=== PATIENT | female | born 1965 | race Caucasian/White ===

== ENCOUNTER 2021-03-02 18:02 | Emergency (ER) | payer OTHER, SELFPAY ==
--- NOTE | ~2021-03-02 | XR_ITS ---
EXAMINATION: XR ankle LT min 3V DATE: 03/02/2021 18:22 INDICATION: Left ankle injury and pain. TECHNIQUE: 4 views of left ankle were obtained. COMPARISON: None. FINDINGS: Bone alignment is normal. No fracture. Joint spaces are well maintained. There is lateral a nkle soft tissue swelling. IMPRESSION: 1. No fracture. Reviewed, dictated and finalized at location A. IMPRESSION: 1. No fracture.
--- NOTE | 2021-03-02 18:07 | ED.LOWEXIN ---
HPI - Extremity Injury (Lower) General Chief Complaint: Extremity Injury, Lower Stated Complaint: left ankle pain Time Seen by Provider: 03/02/21 18:08 Source: patient and RN notes reviewed History of Present Illness HPI Narrative: Patient is a 55-year-old female who presents the urgent care with complaints of left ankle injury with swelling and pain. Patient states that on Friday night she rolled it while walking and did not think anything of it . Patient states that she started to have some mild swelling on Friday and now has had increased pain over the last 2 days. Patient states that she has been using Voltaren cream to the area and has continued to do her normal daily activities. Denies of any other injuries. No other acute complaints. No acute distress noted. Patient aware of the plan of care. Some parts of this dictation were generated by voice recognition software and may contain typographical and/or grammatical inaccuracies. Related Data Home Medications Medication Instructions Recorded Confirmed calcium carbonate 600 mg calcium 600 mg PO DAILY 05/03/19 01/11/20 (1,500 mg) tablet cholecalciferol (vitamin D3) 50 2,000 unit PO DAILY 05/03/19 01/11/20 mcg (2,000 unit) capsule fexofenadine 180 mg tablet 180 mg PO DAILY 05/03/19 01/11/20 mometasone 50 mcg/actuation nasal 2 spray NASAL ONCE gm 05/03/19 01/11/20 spray Allergies Allergy/AdvReac Type Severity Reaction Status Date / Time venom-wasp AdvReac Intermediate Swelling Verified 01/03/20 10:05 Review of Systems Review of Systems: CONSTITUTIONAL: Denies fever, chills, or sweats. EYES: Denies visual changes, redness, or discharge. ENT: Denies rhinorrhea, congestion, sore throat, or otalgia. CARDIOVASCULAR: Denies chest pain, palpitations, or edema. RESPIRATORY: Denies cough or dyspnea. GASTROINTESTINAL: Denies abdominal pain, nausea, vomiting, or diarrhea. GENITOURINARY: Denies dysuria or hematuria. SKIN: Denies rash or itching. MUSCULOSKELETAL: Reports of left ankle pain and swelling NEUROLOGIC: Denies headache, numbness, or weakness. All other systems reviewed are negative, except as documented in HPI. FORMERLY [facility], [facility] Family History Family History Father Diabetes mellitus Hypertension Family history of malignant neoplasm Family history of chronic obstructive pulmonary disease Mother Hypertension Family history of chronic obstructive pulmonary disease Family history of atrial fibrillation Grandparent Hypertension Cerebrovascular accident Family history of Parkinson's disease Other Asthma Social History Social History Smoking status: Never smoker Alcohol intake: current Comments At the time of my signature, I reviewed and agree with the nursing past medical, surgical, social, and family history. There is no relevant family history pertinent to the patient complaint. Exam Narrative: GENERAL: This is a well-nourished, well-developed patient, in no apparent distress. HEAD: normocephalic, atraumatic. EYES: PERRL. Sclera clear/white. Vision is grossly intact. EARS: External ears normal NOSE: External nose normal with no obvious nasal discharge, nares without redness, no rhinorrhea. THROAT: Mucous membranes moist NECK: Neck supple CARDIOVASCULAR: Regular rate and rhythm without murmurs, gallops, or rubs. RESPIRATORY: Clear to auscultation. Breath sounds equal bilaterally. No wheezes, rales, or rhonchi. SKIN: warm, intact with no suspicious lesions or rash, good texture and turgor. NEURO: awake, alert, and oriented to person, place and time. There were no obvious focal neurologic abnormalities. EXTREMITIES: Mild to moderate edema noted to the lateral left malleolus with mild tenderness. Range of motion to left lower extremity within normal limits. Positive strong left pedal pulse with capillary refill less than 2 seconds. P
[2021-03-02 18:10] VITALS: BP 146/77; PULSE 82; RESP 18; TEMP 37.1; O2SAT 100
--- NOTE | 2021-03-02 18:26 | PC.NURSE ---
PT DECLINED ICE FOR COMFORT
== END 2021-03-02 18:40 | disposition home or self-care (01) ==
PROVIDERS: Emergency Provider Nurse Practitioner Family; PCP Radiology Diagnostic Radiology
DX: S93.402A Sprain of unspecified ligament of left ankle, initial encounter (principal); X50.1XXA Overexertion from prolonged static or awkward postures, initial encounter
CPT/HCPCS: 73610; 99213; G0463

== ENCOUNTER 2021-04-18 07:21 | Outpatient (CLI) | payer OTHER, SELFPAY ==
[2021-04-18 20:10] LABS: Basophils Percent Auto 0.6 % (0.2-1.2); Eosinophils Absolute Auto 0.2 K/mm3 (0-0.3); Eosinophils Percent Auto 3.7 % (0-4.4); Hematocrit 42.7 % (37.0-47.0); Hemoglobin 13.2 g/dL (12.0-15.0); Immature Granulocyte Absolute 0.01 K/mm3 (0.00-0.031); Immature Granulocyte Percent A 0.2 % (0-0.5); Lymphocytes Absolute Auto 2.08 K/mm3 (0.9-3.2); Lymphocytes Percent Auto 38.4 % (18.3-44.2); Mean Corpuscular HGB Conc 30.9 g/dl (32-36); Mean Corpuscular Hemoglobin 28.7 pg (26-34); Mean Corpuscular Volume 92.8 fl (80-100); Mean Platelet Volume 11.8 fl (7.4-10.4); Monocytes Absolute Auto 0.6 K/mm3 (0.1-0.6); Monocytes Percent Auto 10.9 % (2.6-8.5); Neutrophils Absolute Auto 2.5 K/mm3 (1.3-6.7); Neutrophils Percent Auto 46.2 % (45.5-73.1); Platelet Count Result 320 k/mm3 (150-375); Red Cell Distribution Width 13.4 % (11.5-14.5); White Blood Count 5.4 K/mm3 (4.5-10.0)
[2021-04-18 20:32] LABS: Alanine Aminotransferase 25 U/L (4-35); Albumin Level 4.3 g/dL (3.5-5.1); Alkaline Phosphatase 67 U/L (38-126); Anion Gap 7 mmol/L (8-16); Aspartate Amino Transferase 34 U/L (14-36); Bilirubin,Total 0.5 mg/dL (0.2-1.3); Blood Urea Nitrogen 15 mg/dL (7-17); Calcium 9.8 mg/dL (8.4-10.2); Carbon Dioxide 29 mmol/L (22-30); Chloride 104 mmol/L (98-107); Cholesterol 210 mg/dL (0-200); Estimated Glomerular Filt Rate > 60; Glucose 98 mg/dL (65-110); HDL Direct 61 mg/dL; Potassium 4.8 mmol/L (3.4-5.0); Sodium 140 mmol/L (137-145); Triglycerides 66 mg/dL (<150)
[2021-04-18 20:43] LABS: LDL Cholesterol Direct 128 mg/dL
[2021-04-18 20:58] LABS: Hemoglobin A1C 5.4 % (<5.7)
[2021-04-18 21:52] LABS: Vitamin D 25 Hydroxy 43.7 ng/mL
== END 2021-04-18 07:22 | disposition home or self-care (01) ==
PROVIDERS: PCP Family Medicine; Visit Provider Family Medicine
DX: Z00.00 Encounter for general adult medical examination without abnormal findings (principal); R79.89 Other specified abnormal findings of blood chemistry
CPT/HCPCS: 36415; 80053; 80061; 82306; 83036; 84443; 85025

== ENCOUNTER 2021-10-15 15:49 | Outpatient (CLI) | payer OTHER, SELFPAY | END 2021-10-15 15:50 | disposition home or self-care (01) | LOC: ANHBWCLAB 15:51 | PROVIDERS: PCP Family Medicine; Visit Provider Family Medicine | DX: E07.9 Disorder of thyroid, unspecified (principal) | CPT/HCPCS: 36415; 84443 ==

== ENCOUNTER 2022-05-10 07:56 | Outpatient (CLI) | payer OTHER, SELFPAY ==
[2022-05-10 18:26] LABS: Alanine Aminotransferase 24 U/L (6-35); Albumin Level 4.4 g/dL (3.5-5.1); Alkaline Phosphatase 55 U/L (38-126); Anion Gap 12 mmol/L (8-16); Aspartate Amino Transferase 51 U/L (14-36); Bilirubin,Total 0.5 mg/dL (0.2-1.3); Blood Urea Nitrogen 10 mg/dL (7-17); Calcium 9.4 mg/dL (8.4-10.2); Carbon Dioxide 27 mmol/L (22-30); Chloride 102 mmol/L (98-107); Cholesterol 210 mg/dL (0-200); Estimated Glomerular Filt Rate > 60; Glucose 86 mg/dL (65-110); HDL Direct 54 mg/dL; Potassium 4.1 mmol/L (3.4-5.0); Sodium 141 mmol/L (137-145); Triglycerides 67 mg/dL (<150)
[2022-05-10 18:36] LABS: Free T4 Free Thyroxine 0.86 ng/mL (0.78-2.19); Vitamin D 25 Hydroxy 52.2 ng/mL
[2022-05-10 18:37] LABS: LDL Cholesterol Direct 102 mg/dL
[2022-05-10 18:40] LABS: Basophils Absolute Auto 0.1 K/mm3 (0.0-0.1); Basophils Percent Auto 0.9 % (0.2-1.2); Eosinophils Absolute Auto 0.2 K/mm3 (0-0.3); Eosinophils Percent Auto 4.3 % (0-4.4); Hematocrit 40.5 % (37.0-47.0); Hemoglobin 13.1 g/dL (12.0-15.0); Immature Granulocyte Absolute 0.01 K/mm3 (0.00-0.031); Immature Granulocyte Percent A 0.2 % (0-0.5); Lymphocytes Absolute Auto 2.34 K/mm3 (0.9-3.2); Lymphocytes Percent Auto 41.6 % (18.3-44.2); Mean Corpuscular HGB Conc 32.3 g/dl (32-36); Mean Corpuscular Hemoglobin 28.6 pg (26-34); Mean Corpuscular Volume 88.4 fl (80-100); Mean Platelet Volume 12.3 fl (7.4-10.4); Monocytes Absolute Auto 0.7 K/mm3 (0.1-0.6); Monocytes Percent Auto 11.9 % (2.6-8.5); Neutrophils Absolute Auto 2.3 K/mm3 (1.3-6.7); Neutrophils Percent Auto 41.1 % (45.5-73.1); Platelet Count Result 240 k/mm3 (150-375); Red Blood Count 4.58 M/mm3 (4.2-5.4); Red Cell Distribution Width 13.4 % (11.5-14.5); White Blood Count 5.6 K/mm3 (4.5-10.0)
[2022-05-15 20:54] LABS: Triiodothyronine T3 Free 4.1 pg/mL (2.3-4.2)
== END 2022-05-10 07:57 | disposition home or self-care (01) ==
LOC: ANHBWCLAB 07:58
PROVIDERS: PCP Family Medicine; Visit Provider Family Medicine
DX: E07.9 Disorder of thyroid, unspecified (principal); F41.9 Anxiety disorder, unspecified; J30.2 Other seasonal allergic rhinitis; R79.89 Other specified abnormal findings of blood chemistry; T63.441A Toxic effect of venom of bees, accidental (unintentional), initial encounter; T63.451A Toxic effect of venom of hornets, accidental (unintentional), initial encounter; T63.461A Toxic effect of venom of wasps, accidental (unintentional), initial encounter
CPT/HCPCS: 36415; 80053; 80061; 82306; 84439; 84443; 84481; 85025

== ENCOUNTER 2023-05-12 10:22 | Outpatient (CLI) | payer OTHER, SELFPAY ==
[2023-05-12 19:29] LABS: Alanine Aminotransferase 20 U/L (6-35); Albumin Level 4.6 g/dL (3.5-5.1); Alkaline Phosphatase 55 U/L (38-126); Anion Gap 9 mmol/L (8-16); Aspartate Amino Transferase 39 U/L (14-36); Bilirubin,Total 0.6 mg/dL (0.2-1.3); Blood Urea Nitrogen 11 mg/dL (7-17); Calcium 9.9 mg/dL (8.4-10.2); Carbon Dioxide 28 mmol/L (22-30); Chloride 104 mmol/L (98-107); Cholesterol 234 mg/dL (0-200); Estimated Glomerular Filt Rate > 60; Free T4 Free Thyroxine 0.89 ng/mL (0.78-2.19); Glucose 93 mg/dL (65-110); HDL Direct 59 mg/dL; Potassium 4.7 mmol/L (3.4-5.0); Sodium 141 mmol/L (137-145); Triglycerides 94 mg/dL (<150); Vitamin D 25 Hydroxy 56.9 ng/mL
[2023-05-12 19:40] LABS: LDL Cholesterol Direct 117 mg/dL
[2023-05-12 19:41] LABS: Basophils Percent Auto 0.5 % (0.2-1.2); Eosinophils Absolute Auto 0.2 K/mm3 (0-0.3); Eosinophils Percent Auto 3.1 % (0-4.4); Hemoglobin 13.7 g/dL (12.0-15.0); Immature Granulocyte Absolute 0.01 K/mm3 (0.00-0.031); Immature Granulocyte Percent A 0.2 % (0-0.5); Lymphocytes Absolute Auto 1.97 K/mm3 (0.9-3.2); Lymphocytes Percent Auto 35.9 % (18.3-44.2); Mean Corpuscular HGB Conc 31.1 g/dl (32-36); Mean Corpuscular Hemoglobin 28.8 pg (26-34); Mean Corpuscular Volume 92.4 fl (80-100); Mean Platelet Volume 12.4 fl (7.4-10.4); Monocytes Absolute Auto 0.5 K/mm3 (0.1-0.6); Monocytes Percent Auto 9.1 % (2.6-8.5); Neutrophils Absolute Auto 2.8 K/mm3 (1.3-6.7); Neutrophils Percent Auto 51.2 % (45.5-73.1); Platelet Count Result 241 k/mm3 (150-375); Red Blood Count 4.76 M/mm3 (4.2-5.4); White Blood Count 5.5 K/mm3 (4.5-10.0)
[2023-05-14 13:28] LABS: Triiodothyronine T3 Free 4.2 pg/mL (2.3-4.2)
== END 2023-05-12 10:23 | disposition home or self-care (01) ==
PROVIDERS: PCP Family Medicine; Visit Provider Family Medicine
DX: E07.9 Disorder of thyroid, unspecified (principal); R79.89 Other specified abnormal findings of blood chemistry; J30.2 Other seasonal allergic rhinitis; Z00.00 Encounter for general adult medical examination without abnormal findings
CPT/HCPCS: 36415; 80053; 80061; 82306; 84439; 84443; 84481; 85025

== ENCOUNTER 2023-11-18 10:56 | Outpatient (CLI) | payer OTHER, SELFPAY ==
[2023-11-18 18:42] LABS: Mean Corpuscular HGB Conc 31.1 g/dl (32-36); Mean Corpuscular Hemoglobin 28.5 pg (26-34); Mean Corpuscular Volume 91.6 fl (80-100); Mean Platelet Volume 12.3 fl (7.4-10.4); Platelet Count Result 254 k/mm3 (150-375); Red Blood Count 4.91 M/mm3 (4.2-5.4); Red Cell Distribution Width 13.9 % (11.5-14.5); White Blood Count 5.9 K/mm3 (4.5-10.0)
[2023-11-18 19:03] LABS: Alanine Aminotransferase 24 U/L (6-35); Alkaline Phosphatase 63 U/L (38-126); Aspartate Amino Transferase 77 U/L (14-36); Bilirubin,Total 0.6 mg/dL (0.2-1.3)
[2023-11-18 20:18] LABS: Free T4 Free Thyroxine 0.76 ng/mL (0.78-2.19); Vitamin D 25 Hydroxy 56.8 ng/mL
[2023-11-18 20:29] LABS: Hepatitis B Surface Antigen Negative (Negative)
[2023-11-18 20:46] LABS: Hepatitis C Virus Antibody Negative (Negative)
[2023-11-18 23:42] LABS: Hepatitis B Core IgM Result Negative (Negative)
[2023-11-18 23:43] LABS: HAV RESULT Negative (Negative)
== END 2023-11-18 10:57 | disposition home or self-care (01) ==
LOC: ANHBWCLAB 10:57
PROVIDERS: PCP Family Medicine; Visit Provider Family Medicine
DX: Z00.00 Encounter for general adult medical examination without abnormal findings (principal); R74.01 Elevation of levels of liver transaminase levels; E07.9 Disorder of thyroid, unspecified; R79.89 Other specified abnormal findings of blood chemistry
CPT/HCPCS: 36415; 80074; 80076; 82306; 84439; 84443; 85027

== ENCOUNTER 2023-11-26 08:30 | Outpatient (CLI) | payer OTHER, SELFPAY ==
--- NOTE | ~2023-11-26 | US_ITS ---
Limited Abdominal Sonogram: Real-time sonographic imaging of the right upper quadrant was performed. Clinical History: Elevated liver transaminase levels Findings: The liver appears normal with no evidence of mass lesion or bile duct dilatation. Main por isa vein demonstrates normal direction of flow. The gallbladder is well distended, and appears normal with no evidence of gallstone or wall thickening. The common bile duct measures 3 mm. The visualize d pancreas, aorta, and IVC are unremarkable. Impression: No significant abnormality seen. Reviewed, dictated and finalized at location M. Impression: No significant abnormality seen.
== END 2023-11-26 08:31 ==
LOC: GOSHIMG 08:30
PROVIDERS: PCP Family Medicine; Visit Provider Family Medicine
DX: R74.01 Elevation of levels of liver transaminase levels (principal)
CPT/HCPCS: 76705

== ENCOUNTER 2024-10-18 13:36 | Emergency (ER) | payer OTHER, SELFPAY ==
[2024-10-18] VITALS (20 sets, daily range): BP systolic 100–141; BP diastolic 43–84; PULSE 55–95; RESP 5–22; TEMP 36.8–37.1; O2SAT 94–100
--- NOTE | ~2024-10-18 | XR_ITS ---
EXAM: XR wrist LT 2V DATE: 10/18/2024 16:11 HISTORY: reduction repeat . COMPARISON: None available. FINDINGS/IMPRESSION: Detail obscured by overlying cast material. Considerably improved alignment status post reduction. Persistent 5 mm lateral and 4 mm posterior displacement of the comminuted intra-articular distal radi al fracture, with some residual impaction. Persistent 2 mm lateral displacement of the comminuted distal ulnar/ulnar styloid fracture. Reviewed, dictated and finalized at location K.
--- NOTE | ~2024-10-18 | XR_ITS ---
Left wrist Technique: PA and lateral views were obtained. Clinical History: Trauma, deformity Findings: There is a comminuted transverse intra-articular fracture the distal radius with complete o verriding and dorsal displacement by one full shaft width. There is also a transverse fracture the di stal ulna, again with dorsal displacement by one full shaft width and probable overriding. Soft tissu e swelling noted about the wrist. Impression: Comminuted transverse intra-articular fracture the distal radius with significant dorsal displacement and overriding, as detailed above. Transverse fracture the distal lumen, also with significant dorsal displacement and overriding. Orthopedic consultation should be strongly considered given significant displacement present. Reviewed, dictated and finalized at location M. Impression: Comminuted transverse intra-articular fracture the distal radius with significa nt dorsal displacement and overriding, as detailed above. Transverse fracture the distal lumen, also with significant dorsal displacement and overriding. Orthopedic consultation should be strongly considered given significant displac ement present.
--- NOTE | 2024-10-18 14:40 | PC.NURSE ---
last oral intake was right before coming to ED
[2024-10-18] MEDS: HYDROmorphone HCL INJ (*CRX) 2 MG/ML VIAL 0.5 MG IV PUSH (14:52)
--- NOTE | 2024-10-18 14:55 | ED.UPPEXIN ---
HPI - Extremity Injury (Upper) General Chief Complaint: Extremity Injury, Upper Stated Complaint: L wrist deformity Time Seen by Provider: 10/18/24 14:27 History of Present Illness HPI narrative: 59-year-old female presenting to the emergency department for left wrist injury. Patient states that she was walking her dogs when they ran out at the neighbor's dog and pulled her forward. She ended up falling onto her left outstretched hand and tumbled briefly. Able to get up and ambulate. Not hit her head or lose consciousness. Had an obvious deformity when EMS arrived. Same splint applied by EMS with a sling. Patient received 100 mcg of fentanyl EN route with improvement in pain. She has subjective paresthesias in her left fingers and limited mobility secondary to the deformity. No other injuries. No elbow pain, humerus pain, headache or neck pain. Denies any allergies. Had oral intake 2 hours prior to arrival. No history of complications from surgeries or intolerance to anesthetic drugs. No history of fractures or dislocations in the past. Related Data Home Medications ?Medication ?Instructions ?Recorded ?Confirmed ?Last Taken ?Type calcium carbonate (Calcium 600) 600 mg PO DAILY 05/03/19 01/07/24 Unknown History cholecalciferol (vitamin D3) 50 2,000 unit PO DAILY 05/03/19 01/07/24 Unknown History mcg (2,000 unit) capsule fexofenadine 180 mg tablet 180 mg PO DAILY 05/03/19 01/07/24 Unknown History (Padmini Allergy) mometasone 50 mcg/actuation nasal 2 spray intranasal ONCE 05/03/19 01/07/24 Unknown History spray (Nasonex) Allergies Allergy/AdvReac Type Severity Reaction Status Date / Time venom-wasp AdvReac Intermediate Swelling Verified 05/17/24 09:19 Review of Systems Review of Systems: As reviewed above in HPI [facility] Past Medical History Medical History delivery delivered Endometriosis History of arthritis Allergies Thyroid disorder Surgical History Surgical History S/P lateral meniscal repair S/P laparoscopic surgery Family History Family History Father Diabetes mellitus Hypertension Family history of malignant neoplasm Family history of chronic obstructive pulmonary disease Mother Hypertension Family history of chronic obstructive pulmonary disease Family history of atrial fibrillation Grandparent Hypertension Cerebrovascular accident Family history of Parkinson's disease Other Asthma Social History Social History Smoking status: Never smoker Alcohol intake: current Lack of Transportation: No Lack of Food: Never True Current Housing: I Have Housing Concerned About Future Housing: No Difficulty Paying Gas/Electric Bills: No Difficulty Paying for Meds: No Currently Unemployed: No Education: Associate Degree Difficulty w/ Childcare or Family Care: No Exam Narrative: GENERAL: Uncomfortable appearing but not any acute distress, awake and answering questions HEAD: [Normocephalic, atraumatic.] EYES: [PERRLA and EOMI.] ENT: Nares clear, no rhinorrhea or epistaxis. Mucous membranes moist. NECK: Supple. CHEST: [Clear to auscultation. No respiratory distress.] HEART: [Regular rate and rhythm]. No murmur heard. [Normal peripheral pulses.] ABDOMEN: [Soft, nondistended], [nontender], [No rigidity or guarding] EXTREMITIES: Left upper extremity with a deformed posterior angulated left wrist without any lacerations or open wounds. Able to wiggle her fingers but not able to oppose the digits or make a thumbs-up sign. No tenderness of the elbow or humerus. SKIN: Warm, dry, no rash. NEURO: Subjective paresthesias in the left fingertips, able to wiggle her fingers. Alert oriented x4. No other sensory or motor deficits appreciated. PSYCH: [Normal mood and affect.] Course Vital Signs Vital signs: Vital Signs Temperature 37.1 C 10/18/24 13:44 Pulse Rate 55 L 10/18/24 13:44 Respiratory Rate 18 10/18/24 13:44 Blood Pressure 117/69 10/18/24 13:44 Pulse Oximetry 98 10/18/24 13:44 Temperature 36.9 C 10/18/24 16:40 Pulse Rate 72 10/18/24 16:25 Respiratory Rate 12 10/18/24 16:40 Blood Pressure 122/67 10/18/24 16:40 Pulse Oximetry 97 10/18/24 16:40 Oxygen Delivery Room Air 10/18/24 16:40 Procedures Orthopedic Fracture Reduction Fracture #1: Fracture Reduction date: 10/18/24 Fracture Reduction time: 15:55 Time Out Performed: Yes Side: left Fracture Reduction Location: radius and ulna Analgesia: procedural sedation Pre-Procedure Neuro Vascular Exam: normal Technique: direct manipulation and traction/counter-traction Post Reduction X-rays Demonstrate: anatomical reduction Post-reduction neuro exam: intact Post-reduction vascular exam: intact Splint Applied: Yes Patient Tolerated Procedure: well and no complications Orthopedic Splinting/Casting Injury #1: Splinting/Casting Date: 10/18/24 Splinting/Casting Time: 16:10 Side: left Upper Extremity Injury Location: wrist Upper Extremity Immobilizer: sugar tong splint Splint: customized in ED Pre-Procedure Neuro Vascular Exam: normal Post-Procedure Neuro Vascular Exam: normal Procedural Sedation Procedural Sedation #1: Procedural Sedation Date: 10/18/24 Procedural Sedation Time: 15:55 Presedation Evaluation: Mallampati 2, last oral intake 2 hours prior. No history of reactions to anesthesia. Neurovascular intact with 2+ radial pulses, able to wiggle her fingers. No paresthesias. Procedure: Moderate sedation and fracture/dislocation reduction of the left distal radius and ulna Provider Performed: sedation and procedure Time Out: 1555. Name age date of confirmed. Procedure confirmed. Patient verbally consented and signed paperwork Informed Consent Obtained: yes Equipment in Room: bag and mask, capnography, supervisor electrolytic tinning, crash cart, oxygen, pulse oximeter and suction Plan for Sedation: moderate sedation ASA Class: I Mallampati Classification: class II NPO Status: last solid food (hours ago) and last liquid food (hours ago) Explanation to Patient/Family: Risk/Benefits/Alternatives and Pt/Family agreed with plan Pt. Educated on Procedural Sedation: Yes Re-evaluated immediately prior: Yes Preparation: supervisor electrolytic tinning applied, pulse oximeter, capnometry used, supplemental O2 applied, suction/airway equipment at bedside and IV secured Ketamine: IV Ketamine dose (mg): 150 Patient Tolerated Procedure: well and no complications Complications: none Total Sedation Time (min): 17 MDM - Extremity Injury (Upper) MDM Narrative Medical decision making narrative: 59-year-old female presenting with a deformed left upper extremity after being pulled to the ground by her dogs. She has a posteriorly angulated and deformed left wrist but good 2+ radial pulse. Warm extremity. Subjective paresthesias and limited range of motion although secondary to the significant deformity unclear if also concomitant nerve injury. No other appreciable injuries according the patient. She did not hit her head or lose consciousness. Received fentanyl EN route with improvement her pain. Patient will require procedural sedation for reduction given the significant injury. X-rays were obtained which confirmed significant dislocation and underlying fractures. Laboratory studies were obtained. Patient consented verbally to procedural sedation. Last oral intake 2 hours ago. Mallampati 2. Will attempt reduction at bedside and consult Orthopedics. Fracture reduction was completed at bedside with moderate sedation in the 150 mg of ketamine. Patient tolerated the procedure well. Near anatomic alignment on postprocedural x-ray per my interpretation. Radiology shows some slight residual angulation. Discussed the case and images with our on car orthopedic surgeon Dr. Galvez who recommended talking to a tertiary care center for hand specialty consultation. Spoke to the [facility] transfer system as connected to Dr. Blackwell from plastic surgery. We went over the imaging studies and given that she is neurovascular intact with good approximation on reduction and appropriately splinted she can be set up for outpatient a war appointment on . Surgeon will contact the patient tomorrow to establish timeline and location. Family and patient were made aware of this plan and comfortable. She will be discharged home with as needed pain medications and given strict return precautions and instructions to follow-up with the orthopedic/plastic surgeon on for operative intervention. Patient discharged home at this time. Medical Records Attestation: I reviewed the patient's medical records. Lab Data Attestation: I reviewed the patient's lab results. 10/18/24 15:09 10/18/24 15:09 Labs: Lab Results 10/18/24 Range/Units 15:09 WBC 10.5 H (4.5-10.0) K/mm3 RBC 4.52 (4.2-5.4) M/mm3 Hgb 12.9 (12.0-15.0) g/dL Hct 39.7 (37.0-47.0) % MCV 87.8 (80-100) fl MCH 28.5 (26-34) pg MCHC 32.5 (32-36) g/dl RDW 13.3 (11.5-14.5) % Plt Count 201 (150-375) k/mm3 MPV 11.8 H (7.4-10.4) fl Immature Gran % (Auto) 0.4 (0-0.5) % Neut % (Auto) 77.6 H (45.5-73.1) % Lymph % (Auto) 11.4 L (18.3-44.2) % [place] % (Auto) 9.6 H (2.6-8.5) % Eos % (Auto) 0.7 (0-4.4) % Baso % (Auto) 0.3 (0.2-1.2) % Lymph # (Auto) 1.19 (0.9-3.2) K/mm3 [place] # (Auto) 1.0 H (0.1-0.6) K/mm3 Eos # (Auto) 0.1 (0-0.3) K/mm3 Baso # (Auto) 0.0 (0.0-0.1) K/mm3 Abs Immat Gran (auto) 0.04 H (0.00-0.031) K/mm3 Absolute Neuts (auto) 8.1 H (1.3-6.7) K/mm3 Absolute Nucleated RBC 0.000 (0.0-0.012) K/mm3 Nucleated RBC % 0.0 (0.0-0.2) % PT 12.9 (11.1-14.7) Seconds INR 0.9 APTT 24.1 (22.3-36.8) Seconds Sodium 139 (137-145) mmol/L Potassium 3.6 (3.4-5.0) mmol/L Chloride 104 (98-107) mmol/L Carbon Dioxide 24 (22-30) mmol/L Anion Gap 11 (4-12) mmol/L BUN 12 (7-17) mg/dL Creatinine 0.61 L (0.7-1.0) mg/dL Estim Creat Clear Calc 98 ml/min Estimated GFR > 60 (59 - ) Glucose 100 (65-110) mg/dL Calcium 9.2 (8.4-10.2) mg/dL Imaging Data Attestation: I personally reviewed and interpreted this imaging study as follows: My impression: Impressions Wrist X-Ray 10/18/24 14:30 Impression: Comminuted transverse intra-articular fracture the distal radius with significant dorsal displacement and overriding, as detailed above. Transverse fracture the distal lumen, also with significant dorsal displacement and overriding. Orthopedic consultation should be strongly considered given significant displacement present. Discharge Plan Discharge Clinical Impression: Intra-articular fracture of distal end of left radius with volar angulation, Closed fracture distal radius and ulna Patient Disposition: Home Condition: Stable Instructions: Antibiotic Form, Wrist Fracture in Adults (ED), ORIF of a Wrist Fracture (DC) Additional Instructions: You have significant fractures in your left wrist and needed reduction here in the emergency department. We have contacted the [facility] system and arranged for an outpatient OR appointment on with Dr. Blackwell the plastic/hand specialist. Their office will call you tomorrow to set up details and instructions. If you experience any worsening symptoms such as new numbness in the fingers, inability to move the fingers, discoloration or increasing pain return to the emergency department otherwise follow-up with the surgeon. Patient Language: Tongan Prescriptions: New methocarbamol 500 mg tablet 500 mg PO HS Qty: 7 0RF ibuprofen 800 mg tablet 800 mg PO TID PRN (Reason: pain) Qty: 30 0RF ondansetron 4 mg tablet,disintegrating 4 mg PO Q8H PRN (Reason: nausea and vomiting) Qty: 10 0RF oxycodone 5 mg tablet 5 mg PO Q8H PRN (Reason: pain) Qty: 10 0RF acetaminophen [Tylenol Extra Strength] 500 mg tablet 1,000 mg PO TID PRN (Reason: pain) Qty: 30 0RF No Action fexofenadine [Padmini Allergy] 180 mg tablet 180 mg PO DAILY mometasone [Nasonex] 50 mcg/actuation spray,non-aerosol 2 spray NASAL ONCE cholecalciferol (vitamin D3) 2,000 unit capsule 2,000 unit PO DAILY calcium carbonate [Calcium 600] 600 mg calcium (1,500 mg) tablet 600 mg PO DAILY estradiol 4 mcg insert, dose pack See Rx Instructions vaginal .COMPLEX Qty: 18 0RF Rx Instructions: insert one 4 mcg insert vaginally once daily for 2 weeks, then twice weekly estradiol 4 mcg insert 4 mcg vaginal 2XW Qty: 24 3RF prednisone 20 mg tablet 60 mg PO DAILY Qty: 15 0RF liothyronine [Cytomel] 5 mcg tablet 5 mcg PO BID Qty: 180 1RF Follow-up/Referrals: Elias Estrella MD [Primary Care Provider] - Time of Disposition: 17:56
[2024-10-18 15:24] LABS: Basophils Percent Auto 0.3 % (0.2-1.2); Eosinophils Absolute Auto 0.1 K/mm3 (0-0.3); Eosinophils Percent Auto 0.7 % (0-4.4); Hematocrit 39.7 % (37.0-47.0); Hemoglobin 12.9 g/dL (12.0-15.0); Immature Granulocyte Absolute 0.04 K/mm3 (0.00-0.031); Immature Granulocyte Percent A 0.4 % (0-0.5); Lymphocytes Absolute Auto 1.19 K/mm3 (0.9-3.2); Lymphocytes Percent Auto 11.4 % (18.3-44.2); Mean Corpuscular HGB Conc 32.5 g/dl (32-36); Mean Corpuscular Hemoglobin 28.5 pg (26-34); Mean Corpuscular Volume 87.8 fl (80-100); Mean Platelet Volume 11.8 fl (7.4-10.4); Monocytes Percent Auto 9.6 % (2.6-8.5); Neutrophils Absolute Auto 8.1 K/mm3 (1.3-6.7); Neutrophils Percent Auto 77.6 % (45.5-73.1); Platelet Count Result 201 k/mm3 (150-375); Red Blood Count 4.52 M/mm3 (4.2-5.4); Red Cell Distribution Width 13.3 % (11.5-14.5); White Blood Count 10.5 K/mm3 (4.5-10.0)
[2024-10-18 15:33] LABS: Anion Gap 11 mmol/L (4-12); Blood Urea Nitrogen 12 mg/dL (7-17); Calcium 9.2 mg/dL (8.4-10.2); Carbon Dioxide 24 mmol/L (22-30); Chloride 104 mmol/L (98-107); Estimated CRCL calculation 98 ml/min; Estimated Glomerular Filt Rate > 60; Glucose 100 mg/dL (65-110); Potassium 3.6 mmol/L (3.4-5.0); Sodium 139 mmol/L (137-145)
[2024-10-18 15:36] LABS: INR 0.9; Prothrombin Time 12.9 Seconds (11.1-14.7)
[2024-10-18 15:37] LABS: Partial Thromboplastin Time 24.1 Seconds (22.3-36.8)
--- OUTSIDE RECORDS SUMMARY | 2024-10-18 16:41 | XMS_ITS | Clinical Summary ---
Author Organization [facility] [employer] Address [address] [place] [address] Care Team Providers Care Beamster Name Role Phone Unavailable Primary Care Provider Unavailabl e Source Comments [facility] [employer],non-owned Affiliates and Associated Physician Practices is amultiple site organization consisting of ambulatory clinics and hospital sitesin [place], [place], [place] and [place]. This disclosure is being madepursuant to the Care Everywhere program and may not contain all information available regarding this patient. Last updated 18.[employer] [facility] Allergies No known active allergies Medications * Be aware that medications may not be up to date on this document. Alwaysverify current medications with the patient. 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[employer]ER Gender Identity Not on file Sexual Orientation Not on file Last Filed Vital Signs Vital Sign Reading Time Taken Comments Blood Pressure 120/74 07/26/2018 3:21 PM CAR WASHER Pulse 81 07/26/2018 3:21 PM CAR WASHER Temperature 37.4 C (99.3 F) 07/26/2018 3:21 PM CAR WASHER Respiratory Rate - - Oxygen Saturation 97% 07/26/2018 3:21 PM CAR WASHER Inhaled Oxygen Concentration - - Weight 83 kg (183 lb) 07/26/2018 3:21 PM CAR WASHER Height 167.6 cm (5' 6 ) 07/26/2018 3:21 PM CAR WASHER Body Mass Index 29.54 07/26/2018 3:21 PM CAR WASHER Plan of Treatment Health Maintenance Due Date Last Done Comments COLOGUARD (AGES 45-75) - COL ON CA SCREENING 1965 COLON MONITORING 1965 COLONOSCOPY - COLON CA SCREENING 1965 CT COLONOGRAPHY - COLON CA SCREENING 1965 Colorectal Cancer Screening 1965 FIT - COLON CA SCREENING 1965 FLEX SIG - COLON CA SCREENING 1965 LIPID TESTING 1965 MAMMOGRAM 1965 PAP SMEAR 1965 HIV SCREENING 1980 HEPATITIS C SCREENING 03/23/1983 HEPATITIS B VACCINE (1 of 3 - 19+ 3-dose series) 1984 PNEUMOCOCCAL VACCINE 50+ (1 of 1 - PCV) 2015 ZOSTER VACCINE (1 of 2) 2015 SCREENING FOR DIABETES 07/26/2018 COVID-19 VACCINE ( - 2023-2 5 season) 2024 DEPRESSION SCREENING 06/30/2024 INFLUENZA VACCINE (Season Ended) 2025 DTAP/TDAP/TD VACCINES (2 - T d or Tdap) 02/20/2029 02/20/2019 HIB VACCINE Aged Out No longer eligi ble based on patient's age to complete this topic HPV VACCINE Aged Out No longer eligi ble based on patient's age to complete this topic MENINGOCOCCAL (Group B) VACC INE SHARED DECISION-MAKING Aged Out No longer eligibl e based on patient's age to complete this topic MENINGOCOCCAL GROUPS A/C/Y/W VACCINE Aged Out No longer eligible b ased on patient's age to complete this topic PNEUMOCOCCAL VACCINE Aged Out No long er eligible based on patient's age to complete this topic Insurance [employer]
--- OUTSIDE RECORDS SUMMARY | 2024-10-18 16:42 | XMS_ITS | Clinical Summary ---
Author Organization [facility] Physician Office Building [address] [place] [id number] Care Team Providers Care Personal Loan Specialist Name Role Phone Elias Estrella MD Primary Care Provider [phone] Allergies No known active allergies Medications multivitamin capsule take 1 capsule by oral route every day 0 2 Active fexofenadine-ps eudoephedrine (REYNALDO-D 24 HOUR) 180-240 mg per 24 hr tablet take 1 tablet by oral route every day on an empty stomach with a glass of water 0 2 Active mometasone (NASONEX) 50 mcg/actuation nasal spray spray 2 spray by intranasal route every day in each nostril 1 1 2 Active sod picosulf-mag ox-citric ac (Clenpiq) 10 mg-3.5 gram- 12 gram/175 mL solution Take as directed 350 mL 4 Active liothyronine (CYTOMEL) 5 mcg tablet Take 1 tablet (5 mcg total) by mouth 2 (two) times a day Active Active Problems Problem Noted Date Diagnosed Date History of colon polyps 11/21/2023 Vulvar vestibulitis 04/05/2013 Overview (10/03/2016): Vaginal vestibulitis Chronic interstitial cystitis 04/05/2013 Overview (10/04/2016): Interstitial cystitis Vertigo 04/14/2012 Overview (10/04/2016): Vertigo Resolved Problems Problem Noted Date Diagnosed Date Resolved Date Endometriosis 04/05/2013 06/16/2017 Overview (10/03/2016): Endometriosis Surgical History Surgery Date Site/Laterality Comments SECTION 1994 & 1997 KNEE ARTHROSCOPY 06/30/2004 - 06/29/2005 LASIK 06/30/1998 - 06/29/1999 DIAGNOSTIC LAPAROSCOPY 06/30/1995 - 06/29/1996 complex ovarian cyst Medical History Medical History Date Comments Vulvar vestibulitis Interstitial cystitis Seasonal allergies History of endometriosis Family History Medical History Relation Name Comments Coronary artery disease Father Diabetes Father Hypertension Father Osteoporosis Father's Sister Osteoporosis Maternal Grandmother Hypertension Mother Hypertension Other 3 out of 4 of h er grandparents Relation Name Status Comments Father Father's Sister Maternal Grandmother Mother Other Social History Tobacco Use Types Packs/Day Years Used Date Smoking Tobacco: Never Smokeless Tobacco: Never Alcohol Use Standard Drinks/Week Comments Yes 0 (1 standard drink = 0.6 oz pur e alcohol) AUDIT-C Answer Date Recorded Q1: How often do you have a drink containing alc ohol? 2-4 times a month 12/05/2023 Q2: How many drinks containi ng alcohol do you have on a typical day when you are drinking? 1 or 2 12/05/2023 Q3: How often do you have si x or more drinks on one occasion? Never 12/05/2023 Personal Safety Answer Date Recorded Have you ever been in or are you currently in a harmful physical or emotional relationship or is someone making you feel afraid or unsafe? 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 file Not on file Not on file Obstetrics History Para Term AB IAB SAB Ectopic Multiple Livin g Live Births 2 2 1 1 0 0 0 0 0 2 2 Date Outcome GA Total Labor Labor/2nd/3rd Weight Sex Type Anes PTL Sarai A1 A5 Name Clin Term Last Filed Vital Signs Vital Sign Reading Time Taken Comments Blood Pressure 130/70 12/05/2023 10:55 AM CDT Pulse 65 12/05/2023 10:55 AM CDT Temperature 37 C (98.6 F) 12/05/2023 9:41 AM CDT Respiratory Rate 15 12/05/2023 10:55 AM CDT Oxygen Saturation 100% 12/05/2023 10:55 AM CDT Inhaled Oxygen Concentration - - Weight 87.5 kg (193 lb) 12/05/2023 9:41 AM CDT Height 167.6 cm (5' 6 ) 12/05/2023 9:41 AM CDT Body Mass Index 31.15 12/05/2023 9:41 AM CDT Plan of Treatment Health Maintenance Due Date Last Done Comments Breast Cancer Screening-Mammogram 1965 Depression Screening 1965 Hepatitis C Screening 1965 Hepatitis B Screening 1983 Regular Well Visit/Exam 18-64 1983 Cervical Cancer Screening 06/14/2017 06/14/2016, 12/2012 Zoster Vaccine (2 of 3) 12/19/2022 10/24/2022, 06/19 Covid-19 Vaccine ( season) 2024 12/01/2023, 05/14/2023, 11/16/2021, Additional history exists Influenza Vaccine (Season Ended) 2025 05/12/2023, 05/07/2022, 04/16/2021 DTaP/Tdap/Td Vaccine (2 - Td or Tdap) 02/20/2029 02/20/2019 Colon Cancer Screening-Colonoscopy 12/04/2033 12/05/2023, 07/31/2015, 07/31/2015 Pneumococcal vaccine <65 Aged Out No longer eligible based on patient's age to complete this topic Procedures Procedure Name Priority Date/Time Associated Diagnosis Comments COLONOSCOPY 12/05/2023 9:33 AM CDT THINPREP IMAGING PAP REFLEX HPV MRNA E6/E7 Routine 06/14/2016 11:10 AM GLASS LOADING EQUIPMENT TENDER from Last 3 Months or Most Recently Relevant to Health Maintenance Results * Colonoscopy (12/05/2023 9:33 AM CDT) Anatomical Region Laterality Modality Other Narrative Procedure Note Tad Patel MD - 12/05/2023 9:33 AM CDT [facility] Endoscopy Lab Patient Name: Jazlyn Potter Procedure Date: 12/05/2023 9:33 AM Date of : 1965 Admit Type: Outpatient Age: 58 Gender: Female Note Status: Finalized Attending MD: Tad Patel M.D. Procedure Date: 12/05/2023 Procedure: Colonoscopy Indications: Family history of colon cancer in a first-degree relative before age 60 years Providers: Tad Patel M.D., Tatiana Rogers CRNA (Anesthesia Staff), Chana Bridges RN Referring MD: Elias Estrella M.D. Medicines: Monitored Anesthesia Care Complications: No immediate complications. Estimated Blood Loss: Estimated blood loss: none. Procedure: Pre-Anesthesia Assessment: - Prior to the procedure, a History and Physicalwas performed, and patient medications and allergieswere reviewed. The patient is competent. The risks and benefits of the procedure and the sedation optionsand risks were discussed with the patient. Allquestions were answered and informed consent was obtained. Patient identification and proposed procedure were verified by the physician in the pre-procedurearea. Mental Status Examination: alert and oriented.Airway Examination: normal oropharyngeal airway and neck mobility. Respiratory Examination: clear to auscultation. CV Examination: normal. Prophylactic Antibiotics: The patient does not requireprophylactic antibiotics. Prior Anticoagulants: The patient has taken no anticoagulant or antiplatelet agents. ASA Grade Assessment: II - A patient with mild systemic disease. After reviewing the risks and benefits,the patient was deemed in satisfactory condition to undergo the procedure. The anesthesia plan was touse monitored anesthesia care (MAC). Immediately priorto administration of medications, the patient was re-assessed for adequacy to receive sedatives. The heart rate, respiratory rate, oxygen saturations, blood pressure, adequacy of pulmonary ventilation,and response to care were monitored throughout the procedure. The physical status of the patient was re-assessed after the procedure. - The risks and benefits of the procedure and the sedation options and risks were discussed with the patient. All questions were answered and informed consent was obtained. After I obtained informed consent, the scope was passed under direct vision. Throughout theprocedure, the patient's blood pressure, pulse, and oxygen saturations were monitored continuously. The scopewas passed under direct vision. The Colonoscope was introduced through the anus and advanced to the the cecum, identified by appendiceal orifice andileocecal valve. The colonoscopy was performed without difficulty. The patient tolerated the procedurewell. The quality of the bowel preparation was good. The ileocecal valve, appendiceal orifice, and rectumwere photographed. The bowel preparation used wasGoLYTELY via split dose instruction. Bowel prep was administered using a split dose. Findings: Two sessile polyps were found in the ascending colon. The polyps were4 mm in size. These polyps were removed with a cold biopsy forceps. Resection and retrieval were complete. Estimated blood loss: none. Multiple small-mouthed diverticula were found in the sigmoid colon. The exam was otherwise without abnormality. Impression: - Two 4 mm polyps in the ascending colon, removedwith a cold biopsy forceps. Resected and retrieved. - Diverticulosis in the sigmoid colon. - The examination was otherwise normal. Recommendation: - Await pathology results. - Repeat colonoscopy in 5 years for surveillance. - High fiber diet eg fresh fruits and vegeatables ( with the peal still on them ) bran, brown breadetc Dr. Tad Patel MD Tad Patel M.D. 12/05/2023 10:38:38 AM This report has been electronically signed by the physician. Number of Addenda: 0 Note Initiated On: 12/05/2023 9:33 AM us Tad Patel MD ENDOSCOPY PROCEDURES Final Resul t * ThinPrep Imaging Pap Reflex HPV mRNA E6/E7 (06/14/2016 11:10 AM GLASS LOADING EQUIPMENT TENDER) SOURCE: SEE NOTE [facility] HISTORICAL RESULTS Comment:Cervix, Endocervix CLINICAL INFORMATION: SEE NOTE [facility]OR[facility] RESULTS Comment:Postmenopausal LMP SEE NOTE [facility] RESULTS Comment:NONE GIVEN Previous Pap SEE NOTE [facility] RESULTS Comment:NONE GIVEN Prev. Bx SEE NOTE [facility]ISTOR[facility] RESULTS Comment:NONE GIVEN Pap, specimen adequacy SEE NOTE [facility] RESULTS Comment:SATISFACTORY FOR REGGIE LUATION HPV interp SEE NOTE [facility] HISTORICAL RESULTS Comment: Negative for intraepithelial lesion or malignancy. Atrophic pattern; predominantly parabasal cells Lactobacillus species SEE NOTE [facility] HISTORICAL RESULTS Comment: This Pap test has been evaluated with computer assisted technology. Foam Rubber Curer SEE NOTE [facility]ORICAL RESULTS Comment: LMT, CT(ASCP) CT screening location: [address] [place] [address] Review boiler tester SEE NOTE [facility] HISTORICAL RESULTS Comment: MEF, CT(ASCP) CT screening location: [place] [address] [place] [address] Test performed at [facility] [address] [address] Director: NICOLE MOLINA MD 06/14/2016 11:1 0 AM GLASS LOADING EQUIPMENT TENDER us Aneta Rosado MD LAB PATHOLOGY ORDER DIMAS Final Result [facility] HISTORICAL RESULTS from Last 3 Months or Most Recently Relevant to Health Maintenance Insurance [facility] CMR Care Teams Personal Loan Specialist Relationship Specialty Start Date End Date Elias Estrella MD PCP - General Family Practice 11/25/23
--- OUTSIDE RECORDS SUMMARY | 2024-10-18 16:42 | XMS_ITS | Referral Summary ---
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 DEVELOPMENT MANAGER Gender Identity Not on file Sexual Orientation Not on file Occupation Industry Job Start Date Job End Date clerical Not on file Not on file Not on file Last Filed Vital Signs [...] 12/05/2023 9:41 AM CDT Plan of Treatment Not on file Procedures Procedure Name Priority Date/Time Associated Diagnosis Comments COLONOSCOPY 12/05/2023 9:33 AM CDT THINPREP IMAGING PAP REFLEX HPV MRNA E6/E7 Routine 06/14/2016 11:10 AM FRANCHISE DEVELOPMENT MANAGER from Last 3 Months or Most Recently Relevant to Health Maintenance Results * Colonoscopy (12/05/2023 9:33 AM CDT) Anatomical Region Laterality Modality Other Narrative Procedure Note Tad Patel MD - 12/05/2023 9:33 AM CDT [facility] Endoscopy Lab Patient Name: Jazlyn Potter [...] 0 Note Initiated On: 12/05/2023 9:33 AM Tad Patel MD ENDOSCOPY PROCEDURES Final Resul t * ThinPrep Imaging Pap Reflex HPV mRNA E6/E7 (06/14/2016 11:10 AM FRANCHISE DEVELOPMENT MANAGER) SOURCE: SEE NOTE [facility] HISTOR[facility] RESULTS Comment:Cervix, [...] has been evaluated with computer assisted technology. Project Crew Worker SEE NOTE [facility] HISTORICAL RESULTS Comment: LMT, CT(ASCP) CT screening location: [address] [place] [address] Review junior staff accountant SEE NOTE [facility] HISTORICAL RESULTS Comment: MEF, CT(ASCP) CT screening location: [place] [address] [address] [place] [address] Test performed at [facility] [address] Director: NICOLE MOLINA MD 06/14/2016 11:1 0 AM FRANCHISE DEVELOPMENT MANAGER Aneta Rosado MD LAB PATHOLOGY ORDER DIMAS Final Result [facility] HISTOR[facility] RESULTS from Last 3 Months or Most Recently Relevant to Health Maintenance Insurance [facility] CMR Care Teams Can Maker Relationship Specialty Start Date End Date Elias Estrella MD PCP - General Family Practice 11/25/23
[2024-10-18] MEDS: ONDANSETRON INJ 4 MG/2 ML VIAL IV PUSH ×2 (16:47→18:09)
--- NOTE | 2024-10-18 18:32 | PC.NURSE ---
This RN attempted to ambulate pt. again. Pt. became nauseous and vomited. Dr. Puga notified. See MAR for intervention.
[2024-10-18] MEDS: METOCLOPRAMIDE HCL INJ 10 MG/2 ML VIAL IV PUSH (18:46)
[2024-10-18] MEDS: dexAMETHasone SOD PHOS INJ 10 MG/ML 1 ML VIAL 8 MG IV PUSH (18:46)
--- NOTE | 2024-10-18 19:10 | PC.NURSE ---
Addendum entered by Socorro Ceron RN 10/20/24 19:26: correction for timing of medication Ketamine 150mg administered by Dr. Puga for moderate sedation for reduction of left upper extremity at 1555 not 1550 Original Note: patient was given 150mg of ketamine at [address] Puga for moderate sedation for reduction of left upper extremity.
== END 2024-10-18 20:09 | disposition home or self-care (01) ==
PROVIDERS: Emergency Provider Student in an Organized Health Care Education/Training Program; PCP Family Medicine
DX: S52.572A Other intraarticular fracture of lower end of left radius, initial encounter for closed fracture (principal); S52.692A Other fracture of lower end of left ulna, initial encounter for closed fracture; E07.9 Disorder of thyroid, unspecified; N80.9 Endometriosis, unspecified; M19.90 Unspecified osteoarthritis, unspecified site; W18.39XA Other fall on same level, initial encounter; Y93.K1 Activity, walking an animal
CPT/HCPCS: 25605; 36415; 73100; 80048; 85025; 85610; 85730; 96374; 96375; 99285; J1100; J1171; J2405; J2765

== ENCOUNTER 2024-11-15 16:14 | Outpatient (CLI) | payer OTHER, SELFPAY ==
--- NOTE | ~2024-11-15 | MM_ITS ---
EXAMINATION: MM screening rachel BI w edith HISTORY: Screening TECHNIQUE: Craniocaudal and mediolateral oblique 3-D tomosynthesis images were obtained and synthetic 2-D images were generated. CAD analysis was submitted and interpreted. COMPARISON: No prior mammogram is available for comparison at this institution. BREAST PARENCHYMAL COMPOSITION: Not dense: There are scattered areas of fibroglandular density. FINDINGS: There is no evidence of suspicious mass, calcification, or architectural distortion to sugg est malignancy in either breast. There has been no suspicious interval change. IMPRESSION: 1. No mammographic evidence of malignancy. 2. Recommend routine screening mammography in one year. BI-RADS Category 1: Negative Reviewed, dictated and finalized at location B.
== END 2024-11-15 16:15 | disposition home or self-care (01) ==
LOC: MICIMG 16:14
PROVIDERS: PCP Obstetrics & Gynecology; Visit Provider Family Medicine
DX: Z12.31 Encounter for screening mammogram for malignant neoplasm of breast (principal)
CPT/HCPCS: 77063; 77067